=== PATIENT | female | born 1990 | race African-American/Black ===

== ENCOUNTER 2017-01-28 08:25 | Emergency (ER) | payer OTHER ==
[~2017-01-28] VITALS: Ht 162.6 cm; Wt 68.1 kg
[2017-01-28] MEDS ORDERED: MACR100C43 PO (08:53)
[2017-01-28] MEDS ORDERED: OMEP40CA2 PO (08:53)
[2017-01-28] MEDS ORDERED: KETOROLAC 60 MG/2 ML VIAL (J1885) IM ONE (09:30)
[2017-01-28] MEDS ORDERED: NAPR500T PO (09:49)
[2017-01-28 10:19] VITALS: BP 120/85
--- NOTE | 2017-01-28 16:14 | ECGEPIP ---
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
== END 2017-01-28 10:30 | disposition home or self-care (01) ==
LOC: M ED 09:46
DX: M94.0 Chondrocostal junction syndrome [Tietze] (principal); Z79.899 Other long term (current) drug therapy
CPT/HCPCS: 93005; 96372; 99284; J1885

== ENCOUNTER 2017-03-01 22:12 | Inpatient (IN) | payer OTHER ==
[~2017-03-01] VITALS: Ht 162.6 cm; Wt 69.2 kg
[~2017-03-01 22:12] MED LIST: MACR100C43 PO; NAPR500T PO; OMEP40CA2 PO
[2017-03-01] MEDS ORDERED: MOTR200T44 PO (22:51)
[2017-03-01] MEDS ORDERED: CYCL5TAB PO (22:51)
[2017-03-01 22:59] LABS: MEAN CORPUSCULAR HEMOGLOBIN 32.3 pg (27.0-33.0); MEAN CORPUSCULAR HGB CONC 34.6 g/dl (32.0-36.5); MEAN CORPUSCULAR VOLUME 93.3 fl (80.0-96.0); RED CELL DISTRIBUTION WIDTH 12.5 % (11.5-14.5); WHITE BLOOD COUNT 5.5 K/mm3 (4.0-10.0)
[2017-03-01] MEDS ORDERED: IBUP1TAB7 PO (23:16)
[2017-03-01] MEDS ORDERED: NAPR1TAB86 PO (23:16)
[2017-03-01 23:18] LABS: METHADONE URINE NEGATIVE (NEGATIVE)
[2017-03-01 23:24] LABS: CONTROL LINE HCG INT CTR LINE PRESENT
[2017-03-01 23:39] LABS: ALBUMIN 4.3 GM/DL (3.2-5.2); ALBUMIN/GLOBULIN RATIO 1.16 (1.00-1.93); ALKALINE PHOSPHATASE 74 U/L (45-117); ALT/SGPT 16 U/L (12-78); ANION GAP 8 MEQ/L (8-16); AST/SGOT 7 U/L (15-37); BILIRUBIN,DIRECT 0.1 MG/DL (0.0-0.2); BILIRUBIN,TOTAL 0.3 MG/DL (0.2-1.0); BLOOD UREA NITROGEN 9 MG/DL (7-18); CALCIUM LEVEL 9.5 MG/DL (8.5-10.1); CARBON DIOXIDE LEVEL 26 MEQ/L (21-32); CHLORIDE LEVEL 108 MEQ/L (98-107); GLOMERULAR FILTRATION RATE > 60.0 (>60); GLUCOSE, FASTING 89 MG/DL (70-105); POTASSIUM SERUM 3.8 MEQ/L (3.5-5.1); SODIUM LEVEL 142 MEQ/L (136-145)
[2017-03-01] MEDS ORDERED: MOM 30ML SUSPENSION UDC PO PRN (23:45)
[2017-03-01] MEDS ORDERED: ACETAMINOPHEN TAB 650MG DOSE (2X325MG) PO PRN (23:45)
[2017-03-01] MEDS ORDERED: HALOPERIDOL 5 MG TAB PO PRN (23:45)
[2017-03-01] MEDS ORDERED: LORazepam 1 MG TAB PO PRN (23:45)
[2017-03-01] MEDS ORDERED: MAALOX 30 ML SUSP *UDC PO PRN (23:45)
[2017-03-02 00:45] VITALS: BP 110/72
--- NOTE | 2017-03-02 08:45 | HPEPDOC ---
Medical History and Physical Date of Admission Mar 01, 2017 at 23:45 History and Physical PCP: [facility] ATTENDING: Dr. Abdulaziz Kilgore HPI: 26yoF admitted to [facility] for unspecified depressive disorder, being medically examined today. Patient states she has had a history of intermittent chest discomfort. It occurs for 1-2 seconds and feels sharp. She was seen by [facility] emergency department 01/28/17 with diagnosis of costochondritis. EKG was noted to be unremarkable. She was prescribed Flexeril 5 mg 3 times a day as needed and ibuprofen 800 mg 3 times a day as needed for pain and muscular spasms as per PCP at [facility]. She states over the past day she has had lower abdominal discomfort. She states she has achy pain. She denies nausea, vomiting, diarrhea, constipation or change in bowel or bladder habits. She denies any urinary complaints. She denies dysuria, hematuria, urgency or frequency. Denies any fevers, chills, weakness, fatigue, ERNST, SOB, cough, palpitations. 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 ROS: As noted in HPI, otherwise 11pt ROS of systems reviewed and remarkable only for LMP 02/11/17. PE: GEN: 26 yo F, appears stated age. Well-nourished, well developed. No acute distress. Alert and oriented x 3. Affect Flat, 1-2 word answers. HEENT: Normocephalic, atraumatic. Pupils are equal, round, and reactive to light. Extraocular movements are intact. No nystagmus appreciated. Sclera are nonicteric. Conjunctiva without injection. Nose midline. Nasal turbinates without bogginess. EACs both patent BL. TMs both visualized and crowe with good cone of light, no bulging or erythema. No facial asymmetry. Moist mucous membranes. Dentition fair. Pharynx pink and moist, no cobblestoning. Neck supple , trachea midline. No lymphadenopathy or thyromegaly appreciated. CHEST: Regular rate and rhythm, +S1, +S2 LUNGS: Clear to auscultation bilaterally. No wheezes, rales, or rhonchi. Breathing appears symmetric and easy. Patient is speaking in full sentences. No accessory muscle use. ABD: Round, soft, mild tenderness over the suprapubic area, left lower quadrant , non-distended. +Bowel sounds throughout. No rebound or guarding. No costovertebral angle tenderness. EXT: Pulses 2+ bilaterally dorsalis pedis and radial. No lower extremity edema appreciated. SKIN: [place], dry, warm. Capillary refill <2sec. No rashes. NEURO: Alert and oriented x 3. Cranial nerves III-XII are intact. No focal deficits appreciated. EKG: pending. EKG 01/28/17 SINUS RHYTHM A&P: 26yoF admitted to [facility] for unspecified depressive disorder 1. Psych. Plan per Psychiatry. Obtain baseline EKG to assure the safety of psychiatric medications as they can prolong the QT interval. 2. Abdominal pain. Request CT scan abdomen and pelvis. Update CBC/CMP. Request UA/urine culture. 3. History of chest discomfort consistent with costochondritis. Symptoms sound consistent with musculoskeletal chest discomfort. The patient states she has had no chest discomfort since admission. Will request EKG. Request CK. Continue with ibuprofen 600 mg every 6 hours as needed. Monitor. 4. Follow up with PCP on discharge. 5. Staff member Shari LEROY present throughout exam. Vital Signs Vital Signs Date Time Temp Pulse Resp B/P (MAP) Pulse Ox O2 Delivery O2 Flow Rate FiO2 03/02/17 00:45 98.6 79 18 110/72 98 Room Air Laboratory Data Labs 24H Laboratory Tests 2 03/01/17 22:49: Urine Amphetamines Screen NEGATIVE, Urine Benzodiazepines Screen NEGATIVE, Urine Opiates Screen NEGATIVE, Urine Methadone Screen NEGATIVE, Urine Barbiturates Screen NEGATIVE, Urine Phencyclidine Screen NEGATIVE, Urine Cocaine Metabolite Screen NEGATIVE, Urine Cannabinoids Screen NEGATIVE 03/01/17 22:50: Anion Gap 8, Glomerular Filtration Rate > 60.0, Calcium Level 9.5, Aspartate Amino Transf (AST/SGOT) 7L, Alanine Aminotransferase (ALT/SGPT) 16, Alkaline Phosphatase 74, Total Bilirubin 0.3, Direct Bilirubin 0.1, Total Protein 8.0, Albumin 4.3, Albumin/Globulin Ratio 1.16, Thyroid Stimulating Hormone (TSH) 0.807, Human Chorionic Gonadotropin, Qual NEGATIVE, Salicylates Level < 1.7L, Acetaminophen Level < 2.0L, Ethyl Alcohol Level 0.003 CBC/BMP Laboratory Tests 03/01/17 22:50 Red Blood Count 4.13, Mean Corpuscular Volume 93.3, Mean Corpuscular Hemoglobin 32.3, Mean Corpuscular Hemoglobin Concent 34.6, Red Cell Distribution Width 12.5 Home Medications Scheduled PRN Cyclobenzaprine HCl (Cyclobenzaprine HCl) 5 Mg Tab, 5 MG PO TID PRN for MUSCLE SPASMS Ibuprofen (Ibuprofen) 800 Mg Tab, 800 MG PO TID PRN for PAIN Naproxen Sodium (Naproxen Sodium) 500 Mg Tab, 500 MG PO BID PRN for PAIN Allergies Coded Allergies: No Known Allergies (Unverified , 01/28/17) Chen Almanzar Mar 02, 2017 08:45
[2017-03-02] MEDS ORDERED: IBUPROFEN 600 MG TAB PO PRN (09:15)
[2017-03-02 09:44] LABS: BASO % 0.5 % (0.0-1.0); EOS # 0.1 K/mm3 (0.0-0.50); EOS % 2.1 % (0.0-3.0); LARGE UNSTAINED CELL # 0.1 K/mm3 (0.0-0.4); LARGE UNSTAINED CELL % 2.2 % (0.0-4.0); LYMPH # 1.7 K/mm3 (1.5-6.5); LYMPH % 34.2 % (24.0-44.0); MEAN CORPUSCULAR HEMOGLOBIN 32.8 pg (27.0-33.0); MEAN CORPUSCULAR HGB CONC 35.2 g/dl (32.0-36.5); MEAN CORPUSCULAR VOLUME 93.4 fl (80.0-96.0); MONO # 0.4 K/mm3 (0.0-0.8); MONO % 7.7 % (0.0-5.0); NEUTROPHILS # 2.5 K/mm3 (1.8-7.7); NEUTROPHILS % 53.2 % (36.0-66.0); PLATELET COUNT, AUTOMATED 247 k/mm3 (150-450); RED CELL DISTRIBUTION WIDTH 12.7 % (11.5-14.5); WHITE BLOOD COUNT 4.7 K/mm3 (4.0-10.0)
--- NOTE | 2017-03-02 10:07 | REP ---
CT of the abdomen and pelvis without IV and oral contrast: There are no comparison studies. The visualized lung richards are unremarkable. The unenhanced hepatic parenchyma is homogeneous. The gallbladder, pancreas and spleen are normal size and unremarkable. The adrenals and kidneys are unremarkable. The abdominal aorta is unremarkable. The bowel and mesentery are unremarkable. There is no bowel distension or obstruction. Pelvis: The appendix is unremarkable. The bladder, uterus and adnexa are unremarkable. There is no ascites or adenopathy. The pelvic bowel loops are unremarkable. Impression: Essentially negative CT of the abdomen and pelvis. Signed by Luis E Canchola MD 03/02/2017 09:59 A
[2017-03-02 10:11] LABS: ALBUMIN 3.6 GM/DL (3.2-5.2); ALKALINE PHOSPHATASE 55 U/L (45-117); ALT/SGPT 14 U/L (12-78); ANION GAP 10 MEQ/L (8-16); AST/SGOT 7 U/L (15-37); BILIRUBIN,TOTAL 0.6 MG/DL (0.2-1.0); BLOOD UREA NITROGEN 9 MG/DL (7-18); CALCIUM LEVEL 8.9 MG/DL (8.5-10.1); CARBON DIOXIDE LEVEL 26 MEQ/L (21-32); CHLORIDE LEVEL 107 MEQ/L (98-107); CREATININE FOR GFR 0.73 MG/DL (0.55-1.02); GLOMERULAR FILTRATION RATE > 60.0 (>60); GLUCOSE, FASTING 81 MG/DL (70-105); POTASSIUM SERUM 3.6 MEQ/L (3.5-5.1); SODIUM LEVEL 143 MEQ/L (136-145); TOTAL PROTEIN 7.2 GM/DL (6.4-8.2)
--- NOTE | 2017-03-02 16:19 | MHHPEPDOC ---
[facility] History & Physical History and Physical DATE OF ADMISSION: Mar 01, 2017 at 23:45 LEGAL STATUS AT ADMISSION: 9.39 CHIEF COMPLAINT: Patient was brought to the ED because she had texted a friend for being suicidal. When friend got to her apartment, realized pt. wa sitting in the living room surrounded by containers full of pills and a knife. Patient was feeling suicidal because her boyfriend broke up with her. HISTORY OF THE PRESENT ILLNESS: Patient is a 26-year-old female, who came from deployment in [place] and is being deployed to [place] again in May. She says she feels a little bit scared of going back, feels tires in the mornings, can't sleep at night. Has muscle tightness around her neck and shoulders, has decreased appetite ( for about two weeks ), problems sleeping since october ( tosses and turns), sensation of tightness in her chest and her throat, occasionally, sweaty and shaky hands, she gets a dry mouth when she's nervous. Has frequent headaches, worries about her future. She was very hurt by her boyfriend's reaction, shocked and hurt. PSYCHIATRIC REVIEW OF SYSTEMS: Affective: Tearful, sad, helpless, hopeless Anxiety: High. Trauma: Denies. Psychosis: Denies. Personally: Needs further assessment. PAST PSYCHIATRIC HISTORY: Prior Psychiatric Disorder: Denies Outpatient Treatment: Denies. Suicidal/Self injurious: Denies. Psychotropic Medication History: Denies. ALLERGIES: Please see below. FAMILY PSYCHIATRIC HISTORY: Denies. SOCIAL HISTORY: Early Relations/development: Reports her childhood as happy Sibling order: She has 4 brothers, three sisters, she's the seventh, she has a youngest sister. Paternal relationships: Good relationship. Education: HS diploma. 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 Has to go back to [place] in May. Legal: Denies. Martial: Single, no children, lives at an apartment with a roommate. Economic: Denies financial problems, but her family keeps asking her for money. Supports: Her friend, her brother.. Abuse/trauma: Denies. SUBSTANCE ABUSE HISTORY: Denies. PAST MEDICAL/SURGICAL HISTORY: Irrelevant VITAL SIGNS: Stable MENTAL STATUS EXAMINATION: General appearance: Patient is a 26-year old female, who is alert, cooperative, sad looking. Speech: soft spoen coherent Thought processes: Intact. Thought content: Coherent. Abstract reasoning and computation: Fair. Description of associations: Good. Description of abnormal or psychotic thoughts: Denies active suicidal/homicidal thoughts, denies auditory or visual hallucinations, denies thought delusions, but reports passive suicidal ideation Judgment: Limited. Insight: Limited. Orientation: Oriented x3. Recent and remote memory: Fair Attention span and concentration: Fair Fund of knowledge: Fair. Mood: "Sad." Affect: Depressed DIAGNOSES: 1. Major depressive disorder with suicidal ideation 2. Generalized anxiety disorder ASSESSMENT: PROBLEM LIST: 1. Risk for suicide 2. Anxiety. 3. Depression. 4. Ineffective coping INITIAL TREATMENT PLAN: 1. Patient was admitted on a 9 2. Complete history was obtained. 3. With patients permission, family will be contacted and database will be expanded. 4. Patients medication regimen will be reviewed and changed accordingly. 5. Patient will be provided with protected environment. 6. Patient will be treated with individual, group, and milieu therapies. 7. Patient will receive supportive psych-education. 8. Discharge planning will commence immediately. 9. Outpatient follow-up treatment will be strongly recommended. 10. The initial treatment plan will focus initially on: * Depression. * Risk for suicide. ESTIMATED LENGTH OF STAY: 5-7 DAYS. TIME SPENT COUNSELING AND COORDINATING INITIAL CARE: 50 minutes. Laboratory Data 24H Labs Laboratory Tests 2 03/01/17 22:49: Urine Amphetamines Screen NEGATIVE, Urine Benzodiazepines Screen NEGATIVE, Urine Opiates Screen NEGATIVE, Urine Methadone Screen NEGATIVE, Urine Barbiturates Screen NEGATIVE, Urine Phencyclidine Screen NEGATIVE, Urine Cocaine Metabolite Screen NEGATIVE, Urine Cannabinoids Screen NEGATIVE 03/01/17 22:50: Anion Gap 8, Glomerular Filtration Rate > 60.0, Calcium Level 9.5, Aspartate Amino Transf (AST/SGOT) 7L, Alanine Aminotransferase (ALT/SGPT) 16, Alkaline Phosphatase 74, Total Bilirubin 0.3, Direct Bilirubin 0.1, Total Protein 8.0, Albumin 4.3, Albumin/Globulin Ratio 1.16, Thyroid Stimulating Hormone (TSH) 0.807, Human Chorionic Gonadotropin, Qual NEGATIVE, Salicylates Level < 1.7L, Acetaminophen Level < 2.0L, Ethyl Alcohol Level 0.003 03/02/17 09:19: Anion Gap 10, Glomerular Filtration Rate > 60.0, Calcium Level 8.9, Aspartate Amino Transf (AST/SGOT) 7L, Alanine Aminotransferase (ALT/SGPT) 14, Alkaline Phosphatase 55, Total Bilirubin 0.6#, Total Protein 7.2, Albumin 3.6, Albumin/ Globulin Ratio 1.00, White Blood Count 4.7, Red Blood Count 3.80L, Hemoglobin 12.5, Hematocrit 35.4L, Mean Corpuscular Volume 93.4, Mean Corpuscular Hemoglobin 32.8, Mean Corpuscular Hemoglobin Concent 35.2, Red Cell Distribution Width 12.7, Platelet Count 247, Neutrophils (%) (Auto) 53.2, Lymphocytes (%) (Auto) 34.2, Monocytes (%) (Auto) 7.7H, Eosinophils (%) (Auto) 2.1, Basophils (%) (Auto) 0.5, Neutrophils # (Auto) 2.5, Lymphocytes # (Auto) 1.7, Monocytes # (Auto) 0.4, Eosinophils # (Auto) 0.1, Basophils # (Auto) 0.0, Large Unclassified Cells % 2.2, Large Unclassified Cells # 0.1, Blood Urea Nitrogen 9, Creatinine 0.73, Sodium Level 143, Potassium Level 3.6, Chloride Level 107, Carbon Dioxide Level 26, Total Creatine Kinase 76 03/02/17 11:45: Urine Appearance CLEAR, Urine Color STRAW, Urine pH 7.0, Urine Specific Junior 1.006, Urine Protein NEGATIVE, Urine Glucose (UA) NEGATIVE, Urine Ketones NEGATIVE, Urine Urobilinogen 0.2, Urine Bilirubin NEGATIVE, Urine Leukocyte Esterase NEGATIVE, Urine Blood NEGATIVE, Urine Nitrite NEGATIVE, Urine WBC (Auto ) 0, Urine RBC (Auto) 0, Urine Hyaline Casts (Auto) 0, Urine Bacteria (Auto) NEGATIVE, Urine Squamous Epithelial Cells 1, Urine Sperm (Auto) CBC/BMP Laboratory Tests 03/01/17 22:50 Red Blood Count 4.13, Mean Corpuscular Volume 93.3, Mean Corpuscular Hemoglobin 32.3, Mean Corpuscular Hemoglobin Concent 34.6, Red Cell Distribution Width 12.5 03/02/17 09:19 Red Blood Count 3.80 L, Mean Corpuscular Volume 93.4, Mean Corpuscular Hemoglobin 32.8, Mean Corpuscular Hemoglobin Concent 35.2, Red Cell Distribution Width 12.7, Neutrophils (%) (Auto) 53.2, Lymphocytes (%) (Auto) 34.2, Monocytes (%) (Auto) 7.7 H, Eosinophils (%) (Auto) 2.1, Basophils (%) ( Auto) 0.5, Neutrophils # (Auto) 2.5, Lymphocytes # (Auto) 1.7, Monocytes # (Auto ) 0.4, Eosinophils # (Auto) 0.1, Basophils # (Auto) 0.0, Calcium Level 8.9, Aspartate Amino Transf (AST/SGOT) 7 L, Alanine Aminotransferase (ALT/SGPT) 14, Total Creatine Kinase 76, Alkaline Phosphatase 55, Total Bilirubin 0.6 #, Total Protein 7.2, Albumin 3.6 Medications Scheduled PRN Cyclobenzaprine HCl (Cyclobenzaprine HCl) 5 Mg Tab, 5 MG PO TID PRN for MUSCLE SPASMS, (Reported) Ibuprofen (Ibuprofen) 800 Mg Tab, 800 MG PO TID PRN for PAIN, (Reported) Naproxen Sodium (Naproxen Sodium) 500 Mg Tab, 500 MG PO BID PRN for PAIN, ( Reported) Allergies Coded Allergies: No Known Allergies (Unverified , 01/28/17) TAMARA JACOBSEN MD Mar 02, 2017 16:19
[2017-03-02 18:00] VITALS: BP 107/71
[2017-03-02] MEDS ORDERED: EXCEDRIN MIGRAINE TABLET PO PRN (23:30)
[2017-03-03 06:33] VITALS: BP 123/71
[2017-03-03] MEDS: SERTRALINE HCL 50 MG TAB PO SCH (14:25)
[2017-03-03 18:13] VITALS: BP 118/73
[2017-03-04 06:03] VITALS: BP 107/61
[2017-03-04] MEDS: SERTRALINE HCL 50 MG TAB PO SCH (09:40)
[2017-03-04 18:20] VITALS: BP 116/66
[2017-03-04] MEDS: traZODone 50 MG TAB PO PRN (21:50)
[2017-03-05 06:37] VITALS: BP 116/56
[2017-03-05] MEDS: SERTRALINE HCL 50 MG TAB PO SCH (09:05)
--- NOTE | 2017-03-05 10:43 | MHIPN ---
DATE OF SERVICE: ___03/03/17 26-year-old female who was admitted on 03/02/2017 because she expressed suicidal ideation. Her boyfriend broke up with her and after that she felt extremely depressed and wanted to end her life, called her best friend and her best friend found her in her apartment surrounded by multiple containers with pills and a knife. SUBJECTIVE: Patient reported that slept well at night, reports good appetite, says she feels less sad than yesterday and did not report anxious. She says she feels tired because of her medication. OBJECTIVE: Patient is alert, oriented times three, cooperative with interview, with blunted affect and poor eye contact, dressed in hospital clothes. Her speech is soft and coherent. Her thought process is intact and her thought content is coherent. She denies current suicidal ideation, denies homicidal ideation, denies auditory and visual hallucinations, denies thought delusions. Her attention and concentration are poor. Her memory is limited. She does not remember part of our conversation from yesterday. Her fund of knowledge is fair. Her insight and judgment are limited. Her impulse control is fair. Her mood is depressed and her affect is blunted. ASSESSMENT: 1. Major depressive disorder with suicidal ideation. 2. Generalized anxiety disorder. Patient is severely depressed. She has denied severe depression when tries to minimize her symptoms but the fact is that she looks extremely depressed, has psychomotor retardation. Her facial expression has almost disappeared. It is obvious today that her memory is not good. She could not remember part of our conversation yesterday. Patient is to be monitored closely because she does not seem to be aware of the seriousness of her illness. She seems to be sedative today because of the medications. Will monitor closely and followup. PUSHPA
--- NOTE | 2017-03-05 17:17 | MHIPN ---
DATE: 03/04/2017 26-year-old female who was admitted on March 01 after she was brought to the emergency department by one of her best friends. Her best friend received a text message saying that she wanted to kill herself. When friend arrived to patient's home she found her sitting in the living room surrounded by pills and a knife. The patient was feeling suicidal because boyfriend broke up with her. SUBJECTIVE: The patient reports feeling better. She says that she slept well, ate well. She says she has contacted her relatives and has spoken to her ex-boyfriend, says that she will receive a visit from a relative. She described less sadness, less anxiety, and denies suicidal thoughts. OBJECTIVE: The patient is alert and oriented times three, her speech is normal, coherent. Her thought process is intact, her thought content is positive and goal-directed. She is not responding to internal stimuli, denies thought disorder, denies suicidal or homicidal ideation. She is oriented times three, her memory is intact. Her attention and concentration are good. Her judgment and insight are improving, her impulse control is good. ASSESSMENT: Major depressive disorder with suicidal ideation. Generalized anxiety disorder. ASSESSMENT: The patient has improved, denies medication side effects and contracts for safety. MANAGEMENT PLAN: The patient will continue on the same medications and will continue attending groups until it is deemed safe to discharge her. Will followup.
[2017-03-05 18:00] VITALS: BP 113/67
[2017-03-05] MEDS: traZODone 50 MG TAB PO PRN (21:37)
[2017-03-06 06:00] VITALS: BP 122/67
[2017-03-06] MEDS: SERTRALINE HCL 50 MG TAB PO SCH (08:14)
[2017-03-06] MEDS ORDERED: TRAZO50TA PO (08:56)
[2017-03-06] MEDS ORDERED: SERT50TA PO (08:56)
--- NOTE | 2017-03-06 13:34 | MHIPN ---
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 Major depressive disorder, moderate. SUBJECTIVE: The patient reports feeling better, denies suicidal thoughts, says she does not feel depressed anymore, she is not anxious. Reported that she received visits from friends, phone calls from relatives and her ex-boyfriend visited her and apologized. OBJECTIVE: She is alert and oriented times three, cooperative, pleasant. She smiles rather frequently now, her mood and affect are brighter. Her speech is normal, her thought process is intact and her thought content is goal directed. Her insight and judgment have improved, her impulse control is fair. She is not suicidal, not homicidal and is not psychotic. MANAGEMENT PLAN: The patient will be discharged tomorrow, a meeting took place today with her chain of command, they will pick her up tomorrow and she will continue at the behavioral clinic at [place] with the same medications. Will followup.
--- NOTE | 2017-03-06 22:20 | MHDSPDOC ---
[facility] Discharge Summary Discharge Summary DATE OF ADMISSION: Mar 01, 2017 at 23:45 DATE OF DISCHARGE: Mar 06, 2017 at 10:00 DISCHARGE DIAGNOSES: 1. Major Depressive Disorder, single episode, moderate REASON FOR ADMISSION: Patient was brought to the ED because she had texted a friend for being suicidal. When friend got to her apartment, realized pt. wa sitting in the living room surrounded by containers full of pills and a knife. Patient was feeling suicidal because her boyfriend broke up with her. Patient is a 26-year-old female, who came from deployment in [place] [facility] and is being deployed to [place] [facility] again in May. She says she feels a little bit scared of going back, feels tires in the mornings, can't sleep at night. Has muscle tightness around her neck and shoulders, has decreased appetite ( for about two weeks ), problems sleeping since october (tosses and turns), sensation of tightness in her chest and her throat, occasionally, sweaty and shaky hands, she gets a dry mouth when she's nervous. Has frequent headaches, worries about her future. She was very hurt by her boyfriend's reaction, shocked and hurt. CONSULTANTS INVOLVED: None TREATMENT AND PROGRESS ON THE UNIT : Patient had a good response to medication. On the and the patient was extremely depressed, hopeless, helpless, sad, with psychomotor retardation, blunted affect, depressed mood and affect, poverty of speech. On the , the patient showed for the first time a smile, she had reactive affect, she had no blunted affect anymore. She reported that receiving phone calls from his family, friend's visits and ex boyfriend who broke up with her, helped her to get better. February,, definitely improved. HOSPITAL COURSE: As above DISCHARGE ASSESSMENT: Stable, with no suicidal ideation or plan, no homicidal ideation and no psychosis. Not in danger to self or others. MENTAL STATUS EXAMINATION ON DISCHARGE: Patient is a -year old female, who is alert and oriented x 3, cooperative, happy Speech is Spontaneous. Language skills are Fair. Thought processes including: Intact. Thought content: Coherent. Abstract reasoning, and computation: Fair. Description of associations: Good. Description of abnormal or psychotic thoughts: Denies suicidal or homicidal ideation, denies thought disorder, not responding to internal stimuli. Judgment: Improved Insight: Improved Orientation to Oriented x 3. Recent and remote memory: Fair. Attention span and concentration: Fair. Language: Normal. Fund of knowledge: Fair. Mood: "I feel fine now" Affect: Full range, reactive appropriate, congruent to mood MEDICATIONS ON DISCHARGE: - Zoloft 50 mgs, PO QD for depression/anxiety. - Trazodone 50 mgs. QHS for insomnia. PLAN/FOLLOWUP ARRANGEMENTS: Patient will follow up at [facility] [place]. The amount of time spent in the coordination of care for this patient was approximately 60 minutes. Vital Signs/I&Os Vital Signs Date Time Temp Pulse Resp B/P (MAP) Pulse Ox O2 Delivery O2 Flow Rate FiO2 03/06/17 06:00 98.1 80 16 122/67 (85) 98 Room Air Laboratory Data Microbiology Microbiology 03/02/17 Urine Culture - Final, Complete Medications Scheduled Sertraline Hcl (Sertraline HCl) 50 Mg Tab, 50 MG PO DAILY for MOOD, #7 Scheduled PRN Ibuprofen (Ibuprofen) 800 Mg Tab, 800 MG PO TID PRN for PAIN, (Reported) Naproxen Sodium (Naproxen Sodium) 500 Mg Tab, 500 MG PO BID PRN for PAIN, ( Reported) Trazodone HCl (Trazodone HCl) 50 Mg Tab, 50 MG PO QHSP PRN for INSOMNIA, #7 Allergies Coded Allergies: No Known Allergies (Unverified , 01/28/17) TAMARA JACOBSEN MD Mar 06, 2017 22:20
== END 2017-03-06 10:00 | disposition home or self-care (01) | DRG 885 ==
LOC: M ED 22:12 → M ED INP 23:45 → M PSY 03-02 00:45
PROVIDERS: ADMIT Psychiatry & Neurology Psychiatry; ATTEND Psychiatry & Neurology Psychiatry
DX: F32.1 Major depressive disorder, single episode, moderate (principal); F41.1 Generalized anxiety disorder; R10.9 Unspecified abdominal pain; Z79.1 Long term (current) use of non-steroidal anti-inflammatories (NSAID); Z79.899 Other long term (current) drug therapy

== ENCOUNTER 2017-05-03 13:02 | Emergency (ER) | payer OTHER ==
[~2017-05-03 13:02] MED LIST changes: +CYCL5TAB PO; +IBUP1TAB7 PO; +MOTR200T44 PO; +NAPR1TAB86 PO; +SERT50TA PO; +TRAZO50TA PO
[2017-05-03] MEDS ORDERED: PRAZ1CAP (13:25)
[2017-05-03 16:23] VITALS: BP 127/77
== END 2017-05-03 16:25 | disposition home or self-care (01) ==
LOC: M ED 13:02
DX: F33.9 Major depressive disorder, recurrent, unspecified (principal); F43.0 Acute stress reaction; F41.9 Anxiety disorder, unspecified; Z79.899 Other long term (current) drug therapy